=== PATIENT | male | born 1945 | race Caucasian/White ===

== ENCOUNTER → 2018-05-29 | Outpatient (CLI) | payer OTHER ==
[~2018-05-29] MED LIST: ACET500 PO; ACYC400 PO; ASCO500 PO; CARV6.25 PO; Cialis5 MG PO; DIGO.125 PO; ELIQUIS2.5 MG PO; FURO40 PO; GLUCOSAMINE CH1 EAC1 PO; LOSA25 PO; Omeprazole20 M1 PO; POTCHL10ER PO; Percocet 5-3251 EACH PO; TADA10TA PO; TETR250 PO; Xyzal5 MG PO
== END | disposition home or self-care (01) ==
LOC: LAB SHORT 08:50 → PLD 08:50
DX: D22.61 Melanocytic nevi of right upper limb, including shoulder (principal)
CPT/HCPCS: 88305

== ENCOUNTER → 2021-12-22 | Outpatient (CLI) | payer OTHER ==
[~2021-12-22] MED LIST changes: +SILDENAFIL CITR20 M1 PO; +ZOFRAN4 MG PO
[2021-12-24 15:10] LABS: Stool Occult Bld Immuno 1 Negative (NEGATIVE)
== END | disposition home or self-care (01) ==
LOC: LAB SHORT 13:43 → LAB 13:43
PROVIDERS: Internal Medicine
DX: D53.9 Nutritional anemia, unspecified (principal)
CPT/HCPCS: 82274

== ENCOUNTER 2022-01-03 13:00 | Day surgery (SDC) | payer OTHER ==
[~2022-01-03] VITALS: Ht 182.9 cm; Wt 84.5 kg
[2022-01-03] MEDS ORDERED: FERSU300 (13:27)
--- NOTE | 2022-01-03 15:55 | NUR ---
01/03/22 1557 ARNOLDO HENRY LIDOCAINE SPRAY TO BACK OF THE THROAT JUST PRIOR TO OR. ORDER PER DR. LOPEZ
--- NOTE | 2022-01-03 16:10 | NUR ---
01/03/22 1610 ARNOLDO HENRY AND Lisa ASSISTED PT WITH DRESSING. ASSISTED PT INTO [facility] AND INTO SEAT.
== END 2022-01-03 15:50 | disposition home or self-care (01) ==
LOC: ORSCSDS 13:00
PROVIDERS: Student in an Organized Health Care Education/Training Program
PROC: 0DB58ZX Excision of Esophagus, Via Natural or Artificial Opening Endoscopic, Diagnostic (ICD-10-PCS; principal; 2022-01-03 14:30)
PROC: 0DBP8ZX Excision of Rectum, Via Natural or Artificial Opening Endoscopic, Diagnostic (ICD-10-PCS; principal; 2022-01-03 14:30)
PROC: 0DBL8ZX Excision of Transverse Colon, Via Natural or Artificial Opening Endoscopic, Diagnostic (ICD-10-PCS; principal; 2022-01-03 14:30)
PROC: 0DB98ZX Excision of Duodenum, Via Natural or Artificial Opening Endoscopic, Diagnostic (ICD-10-PCS; principal; 2022-01-03 14:30)
PROC: 0DBK8ZX Excision of Ascending Colon, Via Natural or Artificial Opening Endoscopic, Diagnostic (ICD-10-PCS; principal; 2022-01-03 14:30)
PROC: 0DB78ZX Excision of Stomach, Pylorus, Via Natural or Artificial Opening Endoscopic, Diagnostic (ICD-10-PCS; principal; 2022-01-03 14:30)
DX: D50.9 Iron deficiency anemia, unspecified (principal); E75.5 Other lipid storage disorders; K29.70 Gastritis, unspecified, without bleeding; K20.90 Esophagitis, unspecified without bleeding; K62.1 Rectal polyp; D12.3 Benign neoplasm of transverse colon; D12.2 Benign neoplasm of ascending colon; I10 Essential (primary) hypertension; Z87.891 Personal history of nicotine dependence; I48.0 Paroxysmal atrial fibrillation; Z79.01 Long term (current) use of anticoagulants; I50.9 Heart failure, unspecified; I42.9 Cardiomyopathy, unspecified; Z79.899 Other long term (current) drug therapy; Z85.118 Personal history of other malignant neoplasm of bronchus and lung; Z85.46 Personal history of malignant neoplasm of prostate
CPT/HCPCS: 88305; 88341; 88342; J0330; J0461; J2405; J2704; J7120

== ENCOUNTER 2023-08-14 13:13 | Day surgery (SDC) | payer OTHER ==
[~2023-08-14] VITALS: Ht 182.9 cm; Wt 83.8 kg
[~2023-08-14 13:13] MED LIST changes: +ARNUITY ELLIP100 MCG INH; +ATOR10 PO; +Balanced Salt Epinephrine Irrigation Solution 500 mL IR SCH; +ELIQUIS5 M2 PO; +FERSU300; +FERSU300 PO; +LOSA50 PO; +Lidocaine HCl/Pf 1% 5 ML VIAL XX SCH; +Moxifloxacin HCL 0.5 MG/0.1 ML 0.4MLSYR RIGHTEYE SCH; +NS 500 ML IV ONE; +OMEP20ER PO; +PHENYLEPHRINE\\TROPICAMIDE\\TETRACAINE OPHTHALMIC DILATING SOLN RIGHTEYE PRN; +POTA10T PO; +Povidone-Iodine 450 DROP/30 ML Solution ONE; +Povidone-Iodine 450 DROP/30 ML Solution RIGHTEYE SCH; +STIOLTO RESPIMAT4 G1
[2023-08-14] MEDS ORDERED: NS 500 ML IV ONE (13:58)
[2023-08-14] MEDS ORDERED: Tetracaine HCl 0.5% Opth Soln 15 ml RIGHTEYE ONE (14:02)
[2023-08-14] MEDS ORDERED: Midazolam HCl 1MG / ML 2ML Vial ONE (14:02)
[2023-08-14] MEDS ORDERED: FentaNYL Citrate 50 MCG/ML 2 ML Injection ONE (14:02)
[2023-08-14 14:25] VITALS: BP 130/72
== END 2023-08-14 14:46 | disposition home or self-care (01) ==
LOC: ORSCSDS 13:13
PROVIDERS: Student in an Organized Health Care Education/Training Program
PROC: 08RJ3JZ Replacement of Right Lens with Synthetic Substitute, Percutaneous Approach (ICD-10-PCS; principal; 2023-08-14 14:30)
DX: H25.13 Age-related nuclear cataract, bilateral (principal); I48.91 Unspecified atrial fibrillation; I50.9 Heart failure, unspecified; I10 Essential (primary) hypertension; I48.0 Paroxysmal atrial fibrillation; K21.9 Gastro-esophageal reflux disease without esophagitis; Z85.46 Personal history of malignant neoplasm of prostate; Z85.118 Personal history of other malignant neoplasm of bronchus and lung; I42.0 Dilated cardiomyopathy; Z79.01 Long term (current) use of anticoagulants; Z79.899 Other long term (current) drug therapy; Z87.891 Personal history of nicotine dependence
CPT/HCPCS: 82947; J2250; J3010; J7040; V2632

== ENCOUNTER 2023-08-28 13:12 | Day surgery (SDC) | payer OTHER ==
[~2023-08-28] VITALS: Ht 182.9 cm; Wt 84.1 kg
[~2023-08-28 13:12] MED LIST changes: +Moxifloxacin HCL 0.5 MG/0.1 ML 0.4MLSYR LEFTEYE SCH; -Moxifloxacin HCL 0.5 MG/0.1 ML 0.4MLSYR RIGHTEYE SCH; +PHENYLEPHRINE\\TROPICAMIDE\\TETRACAINE OPHTHALMIC DILATING SOLN LEFTEYE PRN; -PHENYLEPHRINE\\TROPICAMIDE\\TETRACAINE OPHTHALMIC DILATING SOLN RIGHTEYE PRN; +Povidone-Iodine 450 DROP/30 ML Solution LEFTEYE SCH; -Povidone-Iodine 450 DROP/30 ML Solution RIGHTEYE SCH
--- NOTE | 2023-08-28 13:33 | NUR ---
08/28/23 1333 Holly Bah AT 1329 [address] AT 1330
[2023-08-28] MEDS ORDERED: NS 500 ML IV ONE (13:41)
[2023-08-28] MEDS ORDERED: Midazolam HCl 1MG / ML 2ML Vial ONE (13:44)
[2023-08-28] MEDS ORDERED: FentaNYL Citrate 50 MCG/ML 2 ML Injection ONE (13:44)
[2023-08-28] MEDS ORDERED: Tetracaine HCl 0.5% Opth Soln 15 ml LEFTEYE ONE (14:07)
[2023-08-28 14:33] VITALS: BP 131/69
== END 2023-08-28 14:44 | disposition home or self-care (01) ==
LOC: ORSCSDS 13:12
PROVIDERS: Student in an Organized Health Care Education/Training Program
PROC: 08RK3JZ Replacement of Left Lens with Synthetic Substitute, Percutaneous Approach (ICD-10-PCS; principal; 2023-08-28 14:30)
DX: H25.12 Age-related nuclear cataract, left eye (principal); Z96.1 Presence of intraocular lens; I42.0 Dilated cardiomyopathy; I50.9 Heart failure, unspecified; I10 Essential (primary) hypertension; Z85.118 Personal history of other malignant neoplasm of bronchus and lung; Z85.46 Personal history of malignant neoplasm of prostate; I48.0 Paroxysmal atrial fibrillation; Z79.01 Long term (current) use of anticoagulants; Z79.899 Other long term (current) drug therapy; Z87.891 Personal history of nicotine dependence
CPT/HCPCS: J2250; J3010; J7040; V2632

== ENCOUNTER 2024-01-28 13:02 | Emergency (ER) | payer OTHER ==
[~2024-01-28] VITALS: Ht 182.9 cm; Wt 81.2 kg
[~2024-01-28 13:02] MED LIST changes: -Balanced Salt Epinephrine Irrigation Solution 500 mL IR SCH; -Lidocaine HCl/Pf 1% 5 ML VIAL XX SCH; -Moxifloxacin HCL 0.5 MG/0.1 ML 0.4MLSYR LEFTEYE SCH; -NS 500 ML IV ONE; -PHENYLEPHRINE\\TROPICAMIDE\\TETRACAINE OPHTHALMIC DILATING SOLN LEFTEYE PRN; -Povidone-Iodine 450 DROP/30 ML Solution LEFTEYE SCH; -Povidone-Iodine 450 DROP/30 ML Solution ONE
[2024-01-28] MEDS ORDERED: Ondansetron HCl 2 MG / ML 2ML Vial IV ONE (13:25)
[2024-01-28] MEDS ORDERED: NS 1,000 ML IV ONE (13:25)
[2024-01-28 14:30] LABS: BASOPHILS ABSOLUTE AUTO 0.03 K/mm3 (0.00-0.23); BASOPHILS PERCENT AUTO 0 % (0-2); EOSINOPHILS ABSOLUTE AUTO 0.08 K/mm3 (0.00-0.68); EOSINOPHILS PERCENT AUTO 1 % (0-6); Hematocrit 38.8 % (37.0-53.0); Hemoglobin 13.9 g/dL (13.5-17.5); IMMATURE GRAN ABSOLUTE AUTO 0.05 K/mm3 (0.00-0.10); IMMATURE GRAN PERCENT AUTO 1 % (0-1); LYMPHOCYTES PERCENT AUTO 7 % (21-46); MONOCYTES PERCENT AUTO 10 % (4-13); Mean Corpuscular HGB 33.1 pg (26.0-34.0); Mean Corpuscular HGB Conc 35.8 g/dL (31.5-36.5); Mean Corpuscular Volume 92 fL (80-100); Mean Platelet Volume 9.3 fL (9.1-12.4); NEUTROPHILS ABSOLUTE AUTO 5.58 K/mm3 (1.96-9.15); NEUTROPHILS PERCENT AUTO 80 % (41-73); Platelet Count 118 K/mm3 (150-400); RDW Coefficient Variation 12.5 % (11.7-14.2); RDW Standard Deviation 41.8 fL (35.1-46.3); White Blood Cell Count 6.94 K/mm3 (4.00-11.30)
[2024-01-28 14:55] LABS: Source, Urine Clean Catch
[2024-01-28 15:06] LABS: Appearance, Urine Clear (Clear); Bilirubin, Urine Neg (Neg); Blood, Urine Neg (Neg); Color, Urine Yellow (P-Yellow); Glucose Qualitative, Urine Neg (Neg); Ketones, Urine Neg (Neg); Leukocyte Esterase, Urine Neg (Neg); Nitrite, Urine Neg (Neg); Protein, Urine Neg (Neg); Specific Gravity, Urine 1.015 (1.003-1.022); Urobilinogen, Urine NORM (Normal)
[2024-01-28 15:08] LABS: Albumin, Blood 3.9 g/dL (3.4-5.0); Bilirubin, Total 1.8 mg/dL (0.1-1.0); Bun/Creatinine Ratio 20.8 (12.0-20.0); Calcium, Blood 9.5 mg/dL (8.5-10.1); Creatinine, Blood 0.72 mg/dL (0.60-1.20); Globulin, Blood 3.9 g/dL (2.2-4.0); Potassium, Blood 3.4 mmol/L (3.5-5.5); Thyroid Stimulating Hormone 1.31 uIU/mL (0.360-4.800); Total Protein, Blood 7.8 g/dL (6.4-8.2)
[2024-01-28] MEDS ORDERED: TRAZ50 PO (16:27)
[2024-01-28] MEDS ORDERED: ONDA4 PO (16:27)
[2024-01-28 16:39] LABS: Adenovirus Not Detected (NOT DETECT); Coronavirus 229E Not Detected (NOT DETECT); Coronavirus HKU1 Not Detected (NOT DETECT); Coronavirus NL63 Not Detected (NOT DETECT); Coronavirus OC43 Not Detected (NOT DETECT); Human Metapneumovirus Not Detected (NOT DETECT); Human Rhinovirus/Enterovirus Detected (NOT DETECT); Influenza A/2009-H1 Not Detected (NOT DETECT); Influenza A/H1 Not Detected (NOT DETECT); Influenza A/H3 Not Detected (NOT DETECT); SARS-Cov-2 (COVID-19), BioFire Not Detected (NOT DETECT)
[2024-01-28 16:40] LABS: Bordetella pertussis Not Detected (NOT DETECT); Chlamydophila pneumoniae Not Detected (NOT DETECT); Influenza B Not Detected (NOT DETECT); Mycoplasma pneumoniae Not Detected (NOT DETECT); Parainfluenza Virus 1 Not Detected (NOT DETECT); Parainfluenza Virus 2 Not Detected (NOT DETECT); Parainfluenza Virus 3 Not Detected (NOT DETECT); Parainfluenza Virus 4 Not Detected (NOT DETECT); Respiratory Syncytial Virus Not Detected (NOT DETECT)
[2024-01-28 17:00] VITALS: BP 139/74
[2024-01-28] MEDS ORDERED: BENZ100A PO (17:01)
[2024-01-28] MEDS ORDERED: PROM25 PO (17:01)
== END 2024-01-28 17:16 | disposition home or self-care (01) ==
LOC: ER 13:02
PROVIDERS: Emergency Medicine
DX: B34.9 Viral infection, unspecified (principal); I48.91 Unspecified atrial fibrillation; I42.0 Dilated cardiomyopathy; I50.9 Heart failure, unspecified; J44.9 Chronic obstructive pulmonary disease, unspecified; K21.9 Gastro-esophageal reflux disease without esophagitis; E03.9 Hypothyroidism, unspecified; Z87.891 Personal history of nicotine dependence; Z85.46 Personal history of malignant neoplasm of prostate; Z85.828 Personal history of other malignant neoplasm of skin; Z88.8 Allergy status to other drugs, medicaments and biological substances; Z79.01 Long term (current) use of anticoagulants; Z79.899 Other long term (current) drug therapy
CPT/HCPCS: 0202U; 71046; 80053; 81003; 83690; 83880; 84443; 84484; 85025; 93005; 93010; 96361; 96374; 99285-25; J2405; J7030

== ENCOUNTER → 2024-02-22 | Outpatient (CLI) | payer OTHER ==
[~2024-02-22] MED LIST changes: +BENZ100A PO; +ONDA4 PO; +PROM25 PO; +TRAZ50 PO
[2024-02-22 16:17] LABS: BASOPHILS ABSOLUTE AUTO 0.02 K/mm3 (0.00-0.23); BASOPHILS PERCENT AUTO 0 % (0-2); EOSINOPHILS ABSOLUTE AUTO 0.19 K/mm3 (0.00-0.68); EOSINOPHILS PERCENT AUTO 3 % (0-6); Hemoglobin 13.5 g/dL (13.5-17.5); IMMATURE GRAN ABSOLUTE AUTO 0.02 K/mm3 (0.00-0.10); IMMATURE GRAN PERCENT AUTO 0 % (0-1); LYMPHOCYTES ABSOLUTE AUTO 1.01 K/mm3 (0.84-5.20); LYMPHOCYTES PERCENT AUTO 17 % (21-46); MONOCYTES PERCENT AUTO 10 % (4-13); Mean Corpuscular HGB 32.6 pg (26.0-34.0); Mean Corpuscular HGB Conc 35.5 g/dL (31.5-36.5); Mean Corpuscular Volume 92 fL (80-100); Mean Platelet Volume 9.5 fL (9.1-12.4); NEUTROPHILS ABSOLUTE AUTO 4.11 K/mm3 (1.96-9.15); NEUTROPHILS PERCENT AUTO 69 % (41-73); Platelet Count 131 K/mm3 (150-400); RDW Coefficient Variation 12.7 % (11.7-14.2); RDW Standard Deviation 41.5 fL (35.1-46.3); Red Blood Cell Count 4.14 M/mm3 (4.30-5.90); White Blood Cell Count 5.95 K/mm3 (4.00-11.30)
== END | disposition home or self-care (01) ==
LOC: LAB SHORT 16:10 → LAB 16:10
PROVIDERS: Physician Assistant
DX: K62.5 Hemorrhage of anus and rectum (principal)
CPT/HCPCS: 85025

== ENCOUNTER 2024-07-23 18:10 | Emergency (ER) | payer OTHER ==
[~2024-07-23] VITALS: Ht 182.9 cm; Wt 83.9 kg
[2024-07-23 18:14] VITALS: BP 156/84
[2024-07-23] MEDS ORDERED: OxyCODONE HCL 5 MG TAB PO ONE (19:25)
[2024-07-23] MEDS ORDERED: Ondansetron 4 MG SoluTab SL ONE (19:25)
[2024-07-23] MEDS ORDERED: Percocet 5-3251 EACH PO (19:41)
[2024-07-23] MEDS ORDERED: ONDA4 PO (19:43)
[2024-07-23] MEDS ORDERED: RX Prepack 6 Tabs Oxycodone 5mg UD ONE (19:45)
[2024-07-23] MEDS ORDERED: RX Prepack 2 Tabs Ondansetron ODT 4MG UD ONE (19:45)
== END 2024-07-23 19:58 | disposition home or self-care (01) ==
LOC: ER 18:10
DX: M25.511 Pain in right shoulder (principal); I48.91 Unspecified atrial fibrillation; I42.0 Dilated cardiomyopathy; I50.9 Heart failure, unspecified; J44.9 Chronic obstructive pulmonary disease, unspecified; E03.9 Hypothyroidism, unspecified; K21.9 Gastro-esophageal reflux disease without esophagitis; Z88.8 Allergy status to other drugs, medicaments and biological substances; Z79.01 Long term (current) use of anticoagulants; Z79.899 Other long term (current) drug therapy
CPT/HCPCS: 73030; 99283-25; A9270